=== PATIENT | female | born 2000 | race Caucasian/White ===

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

== ENCOUNTER → 2020-03-22 | Outpatient (CLI) | payer BC ==
[~2020-03-22] MED LIST: NEXPLANON68 MG ID; PROZAC40 MG PO
== END ==
LOC: ZCOL.LAB 16:17
DX: J02.9 Acute pharyngitis, unspecified (principal); R09.81 Nasal congestion; Z20.828 Contact with and (suspected) exposure to other viral communicable diseases

== ENCOUNTER 2021-01-12 04:26 | Emergency (ER) | payer BC ==
[~2021-01-12] VITALS: Ht 165.1 cm; Wt 75.0 kg
[2021-01-12 04:33] VITALS: TEMP 97.9
[2021-01-12 04:58] VITALS: BP 127/78; PULSE 88
== END 2021-01-12 04:55 | disposition home or self-care (01) ==
LOC: COL.ER 04:26
DX: J40 Bronchitis, not specified as acute or chronic (principal)